=== PATIENT | female | born 1955 | race Caucasian/White ===

== ENCOUNTER 2018-02-03 14:33 | Observation (INO) ==
[2018-02-03] MEDS ORDERED: Isovue-370 500 ML INFUS..BTL IV ONE (14:51)
--- NOTE | 2018-02-03 14:57 | Emergency Department Note ---
Disposition Clinical Impression: Neurological symptoms Disposition: Admitted As Inpatient Condition: Good Referrals: Angelica Rodgers MD [Primary Care Provider] - Forms: ED Satisfaction Letter Time of Disposition: 16:34 General Adult HPI - General Chief complaint: ED Neuro Symptoms/Deficit Stated complaint: "L side weakness since 9pm 02/02" Time Seen by Provider: 02/03/18 14:39 Source: patient, family Mode of arrival: ambulatory Limitations: no limitations Nursing Notes Reviewed: Yes Vital Signs Reviewed: Yes - History of Present Illness HPI Narrative: 62-year-old female patient with a prior history of CVA presenting to the em ergency department with CVA symptoms. She states last night around 9 PM she felt a heaviness in the left side of her body. She does have left-sided deficits from her previous stroke. She states that it felt worse than normal. She also had a funny feeling in her head. She had a friend come over and sit with her for a while. She states when she woke up this morning she was back to baseline. She denied any deficits this morning. However around 1 PM this afternoon she states that she started having an increase in heaviness in the left side of her body as well as a dizziness feeling. She reports the dizziness feeling is a feeling like she might occasional rotary component but not present at this time. She does not take any anticoagulants other than aspirin at this time. She was previously on Plavix. She denies any history of bleeding in her head or abdominal bleeding. She denies any nausea vomiting diarrhea. No recent fevers or chills. No blood in her bowels or urine. Patient is currently complaining of a decreased movement in the left upper and left lower extremity. She states this is worse than her previous deficit. She is also complaining of decreased sensation to the right face. Patient denies any recent history of trauma. No seizures. Denies any rashes abdominal pain nausea vomiting chest pain or shortness of breath. Patient does have a history of previous CVA as well as carotid endarterectomies. Pain Scale: 0 - Related Data Home Medications Medication Instructions Recorded Confirmed Albuterol Neb [Proventil Neb] 2.5 mg IH Q2-4H PRN 04/04/15 04/04/15 Albuterol Sulfate [Albuterol 2 puff IH Q2-4H PRN 04/04/15 04/04/15 Inhaler] Aspirin/Calcium Carbonate/Mag 325 mg PO DAILY 12/30/15 12/30/15 [Aspirin Buffered 325 mg Tab] Tiotropium [Spiriva] 18 mcg IH DAILY 04/04/15 04/04/15 diazePAM [Valium] 5 mg PO TID 04/04/15 04/04/15 Previous Rx's Medication Instructions Recorded Budesonide/Formoterol 160/4.5 1 puff IH DAILY #1 hfa.aer.ad 04/04/15 [Symbicort 160/4.5] Allergies Allergy/AdvReac Type Severity Reaction Status Date / Time meperidine [From Demerol] AdvReac Vomiting Verified 02/03/18 14:38 All systems ED: reviewed and negative except as stated. Review of Systems: As Per HPI Past Medical History - Past Medical History Attestation: Yes The following information was validated with the patient. 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 Absent: scleral icterus, nystagmus - ENT ENT exam: other (Decreased sensation to the right side of her face. Decreased nasolabial fold on the left.) - Neck Neck exam: Present: normal inspection, full ROM, trachea midline. Absent: tenderness - Chest Chest inspection: Present: normal inspection, symmetric chest wall rise. Absent: tenderness - Respiratory Respiratory exam: Present: normal lung sounds bilaterally. Absent: respiratory distress, accessory muscle use - Cardiovascular Cardiovascular exam: Present: regular rate, normal rhythm, normal heart sounds - Abdominal Exam Abdominal exam: Present: soft, Non-Tender. Absent: tenderness, distention, guarding, rebound, rigidity, organomegaly, Moreno's sign, Rovsing's sign, tenderness at McBurney's Point - Extremities Exam Extremities exam: Present: normal capillary refill, other (. Contractures to the left hand. Decreased motor to the left upper and left lower extremity. Normal motor and sensation to the right upper right lower. Normal sensation all 4 extremities.). Absent: tenderness, pedal edema - Neurological Exam Neurological exam: Present: alert, oriented X3, motor sensory deficit (Decreased sensation to the right face. Decreased motor to the left upper and left lower extremity. Poor finger to nose with the left arm. Poor [id number]-[id number] with the left leg.). Absent: CN II-XII intact - Psychiatric Psychiatric exam: Present: normal affect, normal mood - Skin Skin exam: Present: warm, dry, intact, normal color. Absent: rash, cyanosis Course Course Narrative: Female patient does have a history of previous stroke. Reporting new increased weakness to the left upper and left lower. Does have poor finger to nose of her left upper and has poor [id number] of the left lower extremity. We did call stroke alert on the patient. Patient is mentating appropriately and alert and oriented 3 at this time. We did discuss this patient with [facility]. We will admit to the hospital after Ativan and Keppra dosing. - Consultations Consultation #1: Dr Calvert was present on the stroke camera. His recommendation is for ativan and keprra and admission for an EEG. He is concerned that this may actually be a seizure. We will order this and speak with our neurologist. Time: 15:34 Vital Signs Temperature 98.2 F 02/03/18 14:35 Pulse Rate 108 02/03/18 14:35 Respiratory Rate 16 02/03/18 14:35 Blood Pressure 129/67 02/03/18 14:35 O2 Sat by Pulse Oximetry 96 02/03/18 14:35 Temperature 98.2 F 02/03/18 14:39 Pulse Rate 95 02/03/18 15:25 Respiratory Rate 16 02/03/18 15:25 Blood Pressure 127/100 02/03/18 15:25 O2 Sat by Pulse Oximetry 96 02/03/18 15:25 Oxygen Delivery Oxygen Delivery Room Air Medical Decision Making - Medical Records Medical records reviewed: Yes I reviewed the patient's medical records. - Lab Data Lab results reviewed: Yes I reviewed the patient's lab results. Result diagrams: 02/03/18 14:53 02/03/18 14:53 Lab Results 02/03/18 02/03/18 02/03/18 Range/Units 14:52 14:53 14:53 WBC 10.2 (4.3-11.1) K/mcL RBC 3.92 (3.82-4.97) M/mcL Hgb 11.6 (11.5-15.4) g/dL Hct 35.1 L (35.3-44.9) % MCV 89.5 (83.0-100.0) fL MCH 29.6 (28.0-33.3) pg MCHC 33.0 (31.6-35.5) g/dL RDW 13.5 (11.5-14.5) % Plt Count 227 (140-400) K/mcL MPV 8.9 L (9.4-12.4) fL PT 12.4 H (9.4-12.1) Seconds INR 1.1 APTT 34.2 (26.0-36.0) Seconds Sodium (136-145) mEq/L Potassium (3.5-5.1) mEq/L Chloride (98-107) mEq/L Carbon Dioxide (23-29) mEq/L BUN (8-23) mg/dL Creatinine (0.60-1.20) mg/dL Est GFR ( Amer) (> 60) Est GFR (Non-Af Amer) (> 60) BUN/Creatinine Ratio (6-26) Glucose (70-105) mg/dL POC Glucose 101 H (70-99) mg/dL Calculated Osmolality (280-300) Calcium (8.6-10.3) mg/dL Troponin I (< 0.04) ng/mL 02/03/18 Range/Units 14:53 WBC (4.3-11.1) K/mcL RBC (3.82-4.97) M/mcL Hgb (11.5-15.4) g/dL Hct (35.3-44.9) % MCV (83.0-100.0) fL MCH (28.0-33.3) pg MCHC (31.6-35.5) g/dL RDW (11.5-14.5) % Plt Count (140-400) K/mcL MPV (9.4-12.4) fL PT (9.4-12.1) Seconds INR APTT (26.0-36.0) Seconds Sodium 139 (136-145) mEq/L Potassium 3.4 L (3.5-5.1) mEq/L Chloride 102 (98-107) mEq/L Carbon Dioxide 28 (23-29) mEq/L BUN 14 (8-23) mg/dL Creatinine 0.44 L (0.60-1.20) mg/dL Est GFR ( Amer) > 60 (> 60) Est GFR (Non-Af Amer) > 60 (> 60) BUN/Creatinine Ratio 32 H (6-26) Glucose 106 H (70-105) mg/dL POC Glucose (70-99) mg/dL Calculated Osmolality 289 (280-300) Calcium 9.5 (8.6-10.3) mg/dL Troponin I < 0.03 (< 0.04) ng/mL - Radiology Data Radiology results reviewed: Yes I reviewed the patient's radiology results. Head CTA 02/03/18 14:51 IMPRESSION: Distal cervical segment, and petrous segments of the bilateral internal carotid arteries are occluded. Left internal carotid artery occlusion is new since 08/25/2011. The right internal carotid artery disease has progressed since 08/25/2011. These are age indeterminate by this examination. Reconstitution of the internal carotid arteries at the cavernous segments. Diminutive P2 segment of the right posterior cerebral artery, with nonvisualization of the P3 and P4 segment of the right posterior cerebral artery. Correlation with change in patient's symptoms is recommended. Otherwise, no high-grade stenosis or focal occlusion involving the intracranial vasculature. No evidence of aneurysm. Please see separate CT head report for evaluation of brain parenchyma. D/ / 02/03/2018 15:57:29 Roman Oliver MD / [facility] Interpreting Provider: Roman Oliver MD Head CT 02/03/18 14:54 IMPRESSION: 1. No acute intracranial abnormality. These findings were discussed with Marine Sargent at 3:12 p.m. 02/03/2018. 2. Diffuse cerebral atrophy with chronic small vessel ischemic disease. 3. Right parietal lobe encephalomalacia likely from prior infarct. D/ / Ivan Crowe MD / Ivan Crowe MD Interpreting Provider: Ivan Crowe MD - EKG Data EKG #1 EKG attestation: Yes I reviewed and interpreted this EKG. EKG results narrative: Sinus tachycardia at a rate of 100. VT intervals 143. QRS duration is 99. QT is 370. QTC is 478. No signs of acute ischemia. No signs of WPW or Brugada. Slow R-wave progression. No significant change from previous EKG dated 1953. NIH Stroke Scale - Level of Consciousness LOC: Alert - LOC Questions LOC Questions: Answers both correctly - LOC Commands LOC Commands: Performs both correctly - Best Gaze Best Gaze: Normal - Visual Visual: No visual loss - Facial Palsy Facial Palsy: Minor asymmetry on smiling, flattened nasolabial fold - Motor Arms Motor Arm-Left: Drift, does NOT hit bed Motor Arm-Right: No drift for 10 seconds - Motor Legs Motor Leg-Left: Drift, does NOT hit bed Motor Leg-Right: No drift for 5 seconds - Limb Ataxia Limb Ataxia: Present in ONE limb - Sensory Sensory: Mild to moderate loss, "not as sharp" - Best Language Best Language: No aphasia - Dysarthria Dysarthria: Mild, slurs some words - Extinction and Inattention Extinction and Inattention: Normal - NIHSS Total Score NIHSS Total Score: 6
[2018-02-03 15:03] LABS: Hematocrit 35.1 % (35.3-44.9); Hemoglobin 11.6 g/dL (11.5-15.4); Mean Corpuscular Hemoglobin 29.6 pg (28.0-33.3); Mean Corpuscular Volume 89.5 fL (83.0-100.0); Mean Platelet Volume 8.9 fL (9.4-12.4); Platelet Count 227 K/mcL (140-400); Red Blood Count 3.92 M/mcL (3.82-4.97); Red Cell Distribution Width 13.5 % (11.5-14.5)
[2018-02-03 15:11] LABS: INR 1.1; Prothrombin Time 12.4 Seconds (9.4-12.1)
[2018-02-03 15:14] LABS: Activated Partial Thrombo Time 34.2 Seconds (26.0-36.0)
[2018-02-03 15:22] LABS: Troponin I < 0.03 ng/mL (< 0.04)
[2018-02-03] MEDS ORDERED: *HR* LORazepam 2 MG/ML VIAL IVP ONE (15:33)
[2018-02-03] MEDS ORDERED: levETIRAcetam 1,000 MG in 0.9 % Sodium Chloride 100 ML IVPB ONE (15:34)
[2018-02-03 15:46] LABS: BUN/Creatinine Ratio 32 (6-26); Blood Urea Nitrogen 14 mg/dL (8-23); Calcium 9.5 mg/dL (8.6-10.3); Carbon Dioxide 28 mEq/L (23-29); Chloride 102 mEq/L (98-107); Glucose 106 mg/dL (70-105); Osmolality,Calculated 289 (280-300); Potassium 3.4 mEq/L (3.5-5.1); Sodium 139 mEq/L (136-145); eGFR For Non-African Americans > 60 (> 60)
--- NOTE | 2018-02-03 16:01 | Emergency Department Note ---
Disposition Clinical Impression: Neurological symptoms Disposition: Admitted As Inpatient Referrals: Angelica Rodgers MD [Primary Care Provider] - Forms: ED Satisfaction Letter General Adult HPI - General Chief complaint: ED Neuro Symptoms/Deficit Stated complaint: "L side weakness since 9pm 02/02" Time Seen by Provider: 02/03/18 14:39 Source: patient, family Mode of arrival: ambulatory Limitations: no limitations - History of Present Illness Pain Scale: 0 - Related Data Home Medications Medication Instructions Recorded Confirmed Albuterol Neb [Proventil Neb] 2.5 mg IH Q2-4H PRN 04/04/15 04/04/15 Albuterol Sulfate [Albuterol 2 puff IH Q2-4H PRN 04/04/15 04/04/15 Inhaler] Aspirin/Calcium Carbonate/Mag 325 mg PO DAILY 04/04/15 04/04/15 [Aspirin Buffered 325 mg Tab] Benzonatate [Tessalon] 200 mg PO TID 04/04/15 04/04/15 Budesonide/Formoterol 80/4.5 2 puff IH BID 04/04/15 04/04/15 [Symbicort 80/4.5] Nitroglycerin 0.3 mg SL Q5MIN PRN 04/04/15 04/04/15 Tiotropium [Spiriva] 18 mcg IH DAILY 04/04/15 04/04/15 diazePAM [Valium] 5 mg PO TID 04/04/15 04/04/15 Previous Rx's Medication Instructions Recorded Albuterol Sulfate [Proair 90 mcg IH 2-4XD PRN #1 aer.[email or web address] 04/04/15 Respiclick] Azithromycin [Azithromycin 6-Tab 250 mg PO DAILY #6 tab 04/04/15 Pack] Budesonide/Formoterol 160/4.5 1 puff IH DAILY #1 hfa.aer.ad 04/04/15 [Symbicort 160/4.5] predniSONE [PredniSONE] 20 mg PO TAPER 9 Days tablet 04/04/15 Allergies Allergy/AdvReac Type Severity Reaction Status Date / Time meperidine [From Demerol] AdvReac Vomiting Verified 02/03/18 14:38 Past Medical History - Past Medical History Medical history: Reports: COPD, other Psychiatric history: Reports: anxiety, depression 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 Ch ([facility]) and he has acceptd yanet ot his service as consult. Time: 15:52 Consultation #2: dr. guan has called with result from [facility] after reading the CTA head/neck and state there areappears to be worsening of the bialteral ICA althouth this may be old and her symptoms do not seem severe enough for complete occlsuion especially if her symptoms hae resolved. [facility] Time: 15:53 Vital Signs Temperature 98.2 F 02/03/18 14:35 Pulse Rate 108 02/03/18 14:35 Respiratory Rate 16 02/03/18 14:35 Blood Pressure 129/67 02/03/18 14:35 O2 Sat by Pulse Oximetry 96 02/03/18 14:35 Temperature 98.2 F 02/03/18 14:39 Pulse Rate 95 02/03/18 15:25 Respiratory Rate 16 02/03/18 15:25 Blood Pressure 127/100 02/03/18 15:25 O2 Sat by Pulse Oximetry 96 02/03/18 15:25 Oxygen Delivery Oxygen Delivery Room Air Medical Decision Making - Lab Data Result diagrams: 02/03/18 14:53 02/03/18 14:53 Lab Results 02/03/18 02/03/18 02/03/18 Range/Units 14:52 14:53 14:53 WBC 10.2 (4.3-11.1) K/mcL RBC 3.92 (3.82-4.97) M/mcL Hgb 11.6 (11.5-15.4) g/dL Hct 35.1 L (35.3-44.9) % MCV 89.5 (83.0-100.0) fL MCH 29.6 (28.0-33.3) pg MCHC 33.0 (31.6-35.5) g/dL RDW 13.5 (11.5-14.5) % Plt Count 227 (140-400) K/mcL MPV 8.9 L (9.4-12.4) fL PT 12.4 H (9.4-12.1) Seconds INR 1.1 APTT 34.2 (26.0-36.0) Seconds Sodium (136-145) mEq/L Potassium (3.5-5.1) mEq/L Chloride (98-107) mEq/L Carbon Dioxide (23-29) mEq/L BUN (8-23) mg/dL Creatinine (0.60-1.20) mg/dL Est GFR ( Amer) (> 60) Est GFR (Non-Af Amer) (> 60) BUN/Creatinine Ratio (6-26) Glucose (70-105) mg/dL POC Glucose 101 H (70-99) mg/dL Calculated Osmolality (280-300) Calcium (8.6-10.3) mg/dL Troponin I (< 0.04) ng/mL 02/03/18 Range/Units 14:53 WBC (4.3-11.1) K/mcL RBC (3.82-4.97) M/mcL Hgb (11.5-15.4) g/dL Hct (35.3-44.9) % MCV (83.0-100.0) fL MCH (28.0-33.3) pg MCHC (31.6-35.5) g/dL RDW (11.5-14.5) % Plt Count (140-400) K/mcL MPV (9.4-12.4) fL PT (9.4-12.1) Seconds INR APTT (26.0-36.0) Seconds Sodium 139 (136-145) mEq/L Potassium 3.4 L (3.5-5.1) mEq/L Chloride 102 (98-107) mEq/L Carbon Dioxide 28 (23-29) mEq/L BUN 14 (8-23) mg/dL Creatinine 0.44 L (0.60-1.20) mg/dL Est GFR ( Amer) > 60 (> 60) Est GFR (Non-Af Amer) > 60 (> 60) BUN/Creatinine Ratio 32 H (6-26) Glucose 106 H (70-105) mg/dL POC Glucose (70-99) mg/dL Calculated Osmolality 289 (280-300) Calcium 9.5 (8.6-10.3) mg/dL Troponin I < 0.03 (< 0.04) ng/mL Attestation Statement - Attestation Attestation: I examined this patient and my medical decision-making was reviewed with the Resident Physician. I agree with the documented findings, disposition and treatment plan as described except to the extent set forth below. 62 year old female state that she had been expereincing facial numbness and sensation defecits that strted last night at 2100 and then she went to bed and it resolved in the morning but around 1300 today the symptomat returned. Patient states that she had a history of strokes with known left sided defecits. WE will call STROKE [facility]
--- NOTE | 2018-02-03 16:03 | Neurology - Consult Note ---
<Evangelist Monroe - Last Filed: 02/03/18 18:14> Date of Encounter: 02/03/18 Time of Encounter: 16:03 Assessment and Plan (1) Neurological symptoms Current Visit: Yes Status: Acute patient presents with two episodes of LE weakness greater on the left that lasted 30 min and along with this she had a left sided headache with spots. she has residual left sided weakness from previous stroke. Otherwise her neurological exam was non-focal and non-lateralizing CT head was negative for acute changes showed right parietal lobe encephalomela rossy from previous CTA head showed Distal cervical segment, and petrous segments of the bilateral internal carotid arteries are occluded. patient symptoms are less likely to be stroke,tia as symptoms reoccurred and did not have any localizing features patient does have a history of migraines and complex migraines may present like this: currently she does not have a headache also she has hx of seizure (grand-mal). Seizure should also be ruled out plan: patient will be started on keppra, EEG ordered. continue aspirin, statin (2) Migraine Current Visit: Yes Status: Acute patients symptoms could have been a complex migraine currently she denies headache plan as above. Qualifiers: Migraine type: with aura Status migrainosus presence: without status migrainosus Intractability: not intractable Qualified Code(s): G43.109 - Migraine with aura, not intractable, without status migrainosus (3) Seizure disorder Current Visit: Yes Status: Chronic patient started on keppra for concern for seizure eeg tomorrow (4) Bilateral carotid artery occlusion Current Visit: Yes Status: Chronic History of Present Illness Chief complaint: left sided weakness HPI: Ms. Mejia is a 62 year old female presents with cc of left sided weakness. Last night at 9PM she was watching television when she had sudden onset of left sided heaviness in the LLE as well as some right sided weakness. 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 She reports her LLE weakness worsened during this episode. She also had a headache at this time that was located above the left eye and without radiation described as throbbing. She reported spots in her eye as well as nausea, photophobia and phonophobia. She denies loosing conciousness, tongue biting, loss of bowel and bladder function, numbness, tingling, double vision, changing in hearing. She called her friend that lived 2 houses down as soon as symptoms started afraid she was having a TIA. Patient's friend was present and stated she had a ortiz to the house and had to open the door herself as patient could not stand up. The episode lasted 30 minutes, after which all her symptoms resolved and patient was able to ambulate independently. Friend reported patient did have worsening dysarthria. This morning patient woke up and had her breaskfast. Her symptoms returned again at 12PM and were very similar to the first. She called her PCP who advised her to come to the ED. Patient reports her symptoms had resolved by the time she had arrived. Patient also states she has history of grand-mal seizures and was on diazepam as treatment. She has not been on antiepileptic drugs.She used to be on diazepam 5mg TID and that has been titrated down to 5mg daily. Past Med Surg Social Fam HX - Past Medical History Medical history: COPD, other Additional medical history: pre-diabetic Psychiatric history: anxiety, depression - Past Surgical History Additional surgical history: cardiac stents - Social History Smoking Status: Current every day smoker Smokeless Tobacco Status: No Alcohol use: none Drug use: none Medications and Allergies Albuterol Neb [Proventil Neb] 2.5 mg IH Q2-4H PRN 04/04/15 [History] Albuterol Sulfate [Albuterol Inhaler] 2 puff IH Q2-4H PRN 04/04/15 [History] Aspirin/Calcium Carbonate/Mag [Aspirin Buffered 325 mg Tab] 325 mg PO DAILY 04/04/15 [History] Budesonide/Formoterol 160/4.5 [Symbicort 160/4.5] 1 puff IH DAILY #1 hfa.aer.ad 04/04/15 [Rx] Tiotropium [Spiriva] 1 puff IH DAILY 04/04/15 [History] diazePAM [Valium] 5 mg PO TID 04/04/15 [History] Atorvastatin [Lipitor] 40 mg PO HS 02/03/18 [History] Benzonatate [Tessalon] 200 mg PO TID PRN 02/03/18 [History] Fluticasone/Salmeterol [Airduo Respiclick 232-14 Mcg] 1 puff IH BID 02/03/18 [History] Mirtazapine [Remeron] 15 mg PO HS 02/03/18 [History] Nitroglycerin [Nitrostat] 0.4 mg SL Q5M PRN 02/03/18 [History] Allergy/AdvReac Type Severity Reaction Status Date / Time meperidine [From Demerol] AdvReac Vomiting Verified 02/03/18 14:38 All Systems: The remainder of the systems were reviewed and are negative - Constitutional Constitutional ROS IM: no chills, no fatigue - Nose, Mouth, Throat Nose, mouth and throat: other (denied vertigo, rinorrhea, dry mouth, dysphagia) - Cardiovascular Cardiovascular ROS IM: other (denies cp/palpitations) - Respiratory Respiratory IM: other (denined sob, cough) - Genitourinary Genitourinary ROS: other (denied abd pain/ diarrhea) - Musculoskeletal Musculoskeletal ROS IM: other (reports LLE weakness, ), no myalgias - Integumentary Integumentary IM: no erythema, no rash - Neurological Neurological ROS: as per HPI - Psychiatric Psychiatric general PM: no anxiety, no depression - Endocrine Endocrine IM: no cold intolerance, no fatigue Physical Examination - Vital Signs Vital Signs: Initial Vital Signs Temp Pulse Resp BP Pulse Ox 98.2 F 108 16 129/67 96 02/03/18 14:35 02/03/18 14:35 02/03/18 14:35 02/03/18 14:35 02/03/18 14:35 - Constitutional General appearance: comfortable - Neurologic Sensorimotor examination: pronator drift (left) Motor examination - right side: 3/5: deltoids, triceps, wrist flexion, wrist ex tension, assistant food service director, hip flexors, tibialis Anterior, toe extension (EHL), plantarflexion, 4/5: biceps, quadriceps Motor examination - left side: 4/5: deltoids, biceps, triceps, wrist flexion, wrist extension, hip flexors, assistant food service director, quadriceps, tibialis Anterior, toe extension (EHL), plantarflexion Detailed sensory examination: intact, light touch Reflex and gait examination: other (on the right relfexes ar 2/4 throughout. On the left biceps, patella, achilles, and bracioradialis are 3/4 while triceps are 2/4) Mental Status Examination: awake, alert, oriented to person, oriented to place, oriented to time, follows commands appropriately, answers questions appropriately, no agnosia, no aphasia, no aproxia Cranial nerve examination: PERRL, EOMI, visual duke intact, sensory to face intact, mastication intact, no facial asymmetry is present, no dysarthria, hearing is intact symmetrically, soft palate elevates bilaterally upon phonation, flexes SCM and trapezius muscles symmetrically with full power, tongue protrudes midline, no atrophy or facial fasiculations present Cerebellar examination: no dysmetria, performs finger to nose and heel to calderon symmetrically without ataxia, no truncal ataxia, no difficulty with rapid alternating movements Results - Laboratory Findings CBC and BMP: 02/03/18 14:53 02/03/18 14:53 Abnormal lab findings: Abnormal lab results Hct 35.1 % (35.3-44.9) L 02/03/18 14:53 MPV 8.9 fL (9.4-12.4) L 02/03/18 14:53 PT 12.4 Seconds (9.4-12.1) H 02/03/18 14:53 Potassium 3.4 mEq/L (3.5-5.1) L 02/03/18 14:53 Creatinine 0.44 mg/dL (0.60-1.20) L 02/03/18 14:53 BUN/Creatinine Ratio 32 (6-26) H 02/03/18 14:53 Glucose 106 mg/dL (70-105) H 02/03/18 14:53 POC Glucose 101 mg/dL (70-99) H 02/03/18 14:52 Consult Discharge Plan - Plan Instructions: Transient Ischemic Attack (GEN) Additional Instructions: Please follow up with your PCP Continue your outpatient Physical therapy Referrals: Angelica Rodgers MD [Primary Care Provider] - <Josh Ch - Last Filed: 02/04/18 15:24> Date of Encounter: 02/04/18 Time of Encounter: 15:15 Assessment and Plan (1) Neurological symptoms Current Visit: Yes Status: Acute It is possible that this patient may have experienced migraine phenomena, TIA, or perhaps seizure activity. Apparently she also has a history of anxiety is possible it could have been an anxiety attack as well. She has a known history of bilaterally occluded internal carotid arteries. My recommendation is to discontinue the Keppra and start her on Depakote ER 250 mg daily. This would help in the event that we are dealing with migraine headaches, and I might consider titrating up to antiepileptic dosages if she continues to experience these spells. Finally I would recommend discontinuing aspirin and replacing it with Plavix 75 mg daily. Management of her stroke risk factors is paramount. Otherwise I do not feel any other testing is necessary. Her EEG was normal. He may discharge her at your discretion. I would like to follow up with her in my office and another week or 2 for further assessment and possible titration of the Depakote ER. History of Present Illness HPI: The chart was reviewed, the patient was seen and examined independently. The case was discussed with Dr. Monroe. I agree with his assessment as stated above. Patient has not had any further episodes since admission. She apparently had a right cerebral hemispheric infarct back in 2011. She states that she did not however go to the hospital right away. These old infarct involving the right posterior temporal posterior frontal lobe and right parietal lobe region. At the time apparently she had right internal carotid artery stenosis. Ultimately she had a right carotid endarterectomy. However over time she has reoccluded b [facility] internal carotid arteries at the region of the petrous ridge. I did repeat her EEG today which was normal. I also personally reviewed her MRI scan of the brain which does reveal the above-mentioned abnormalities. There was no evidence of acute infarction however. All Systems: The remainder of the systems were reviewed and are negative Review of Systems: The balance of the systems review is negative. Physical Examination - Vital Signs Vital Signs: Initial Vital Signs Temp Pulse Resp BP Pulse Ox 98.2 F 108 16 129/67 96 02/03/18 14:35 02/03/18 14:35 02/03/18 14:35 02/03/18 14:35 02/03/18 14:35 - Neurologic Sensorimotor examination: pronator drift Motor examination - right side: 5/5: deltoids, biceps, triceps, assistant food service director, hip flexors, tibialis Anterior, quadriceps, toe extension (EHL), plantarflexion Motor examination - left side: 3/5: hip flexors, 4/5: deltoids, biceps, triceps, assistant food service director, quadriceps, tibialis Anterior, toe extension (EHL), plantarflexion Cranial nerve examination: no dysarthria (Speech is dysarthric.) Results - Laboratory Findings CBC and BMP: 02/04/18 09:03 02/04/18 05:04 Abnormal lab findings: Abnormal lab results RBC 3.18 M/mcL (3.82-4.97) L 02/04/18 05:04 Hgb 10.5 g/dL (11.5-15.4) L 02/04/18 09:03 Hct 32.2 % (35.3-44.9) L 02/04/18 09:03 MPV 9.3 fL (9.4-12.4) L 02/04/18 05:04 PT 12.4 Seconds (9.4-12.1) H 02/03/18 14:53 Potassium 3.2 mEq/L (3.5-5.1) L 02/04/18 05:04 Chloride 110 mEq/L (98-107) H 02/04/18 05:04 Carbon Dioxide 21 mEq/L (23-29) L 02/04/18 05:04 Creatinine 0.34 mg/dL (0.60-1.20) L 02/04/18 05:04 BUN/Creatinine Ratio 29 (6-26) H 02/04/18 05:04 POC Glucose 101 mg/dL (70-99) H 02/03/18 14:52 Calcium 8.3 mg/dL (8.6-10.3) L 02/04/18 05:04
--- NOTE | 2018-02-03 17:28 | Internal Med History&Physical ---
Date of Encounter: 02/03/18 Time of Encounter: 17:15 Internal Medicine - H&P: HPI Chief complaint: Seeing black spots in vision duke, weakness in lower extremities Admitted From: Emergency Dept Plans for Post Hospital Care: Home History of present illness: Ms. Mejia is a 62 year old female patient with a history of prior CVA with residual left-sided weakness who presented to the ER with complaints of black spots in her vision duke, right facial numbness and bilateral lower extremity weakness. She initially reported the symptoms last evening at 9 PM. Her sister checked in on her and while she was visiting, her symptoms seemed to improve. Then she again developed the symptoms at 1 PM this afternoon and called her primary care provider's office who advised her to come to the ER. She does have a history of seizures and reports that she takes diazepam 3 times a day for this. She last had a seizure one year back. Presently she complains that her legs still feel weak but she is able to ambulate. She denies any speech abnormality at this time but her sister noticed some speech abnormalities last night when she was on the phone with her. She denies any black spots in her visual duke at this time. Denies any chest pain or palpitations. No abdominal pain reported. She does report that she was previously told her neck vessels are occluded and there was no surgical intervention recommended for it. Past Med Surg Social Fam HX - Past Medical History Attestation: Yes The following information was validated with the patient. Source: patient, old records reviewed Medical history: COPD, other Additional medical history: pre-diabetic Psychiatric history: anxiety, depression - Past Surgical History Additional surgical history: cardiac stents - Social History Smoking Status: Current every day smoker Smokeless Tobacco Status: No Alcohol use: none Drug use: none - Additional Family History Additional family history: History of CVA in her family Internal Medicine - H&P: Meds Albuterol Neb [Proventil Neb] 2.5 mg IH Q2-4H PRN 04/04/15 [History] Albuterol Sulfate [Albuterol Inhaler] 2 puff IH Q2-4H PRN 04/04/15 [History] Aspirin/Calcium Carbonate/Mag [Aspirin Buffered 325 mg Tab] 325 mg PO DAILY 04/04/15 [History] Budesonide/Formoterol 160/4.5 [Symbicort 160/4.5] 1 puff IH DAILY #1 hfa.aer.ad 04/04/15 [Rx] Tiotropium [Spiriva] 1 puff IH DAILY 04/04/15 [History] diazePAM [Valium] 5 mg PO TID 04/04/15 [History] Atorvastatin [Lipitor] 40 mg PO HS 02/03/18 [History] Benzonatate [Tessalon] 200 mg PO TID PRN 02/03/18 [History] Fluticasone/Salmeterol [Airduo Respiclick 232-14 Mcg] 1 puff IH BID 02/03/18 [History] Mirtazapine [Remeron] 15 mg PO HS 02/03/18 [History] Nitroglycerin [Nitrostat] 0.4 mg SL Q5M PRN 02/03/18 [History] Allergy/AdvReac Type Severity Reaction Status Date / Time meperidine [From Demerol] AdvReac Vomiting Verified 02/03/18 14:38 All Systems PM: A 10-system review of systems was performed and is negative for pertinent findings except as documented above in the HPI. - Constitutional Constitutional: no chills, no fever(s), no night sweats - EENT Eyes: no change in vision, no discharge, no pain, no photophobia Ears: no ear discharge, no ear pain, no tinnitus Nose, mouth and throat: no dysphagia, no nasal discharge, no neck pain, no sore throat - Cardiovascular Cardiovascular ROS IM: no chest pain, no diaphoresis, no dyspnea, no lightheadedness, no palpitations, no syncope - Respiratory Respiratory: no cough, no dyspnea, no wheezing, no excessive phlegm production - Gastrointestinal Gastrointestinal: no abdominal pain, no diarrhea, no hematemesis, no hematochezia, no melena, no nausea, no vomiting - Musculoskeletal Musculoskeletal ROS IM: no numbness, no tingling Additional comments: 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 - Neck Neck exam general surgery: Present: supple, trachea midline. Absent: lymphadenopathy - Respiratory Respiratory exam: Present: CTAB. Absent: accessory muscle use, rales, rhonchi, wheezes - Cardiovascular Cardiovascular exam: Present: RRR, +S1, +S2. Absent: diastolic murmur, gallop, rubs, systolic murmur - GI/Abdominal GI/Abdominal exam: Present: normal bowel sounds, soft, no peritoneal signs. Absent: distended, tenderness - Extremities Exam Extremities exam: Present: warm, radial pulses palpable and symmetrical. Absent: calf tenderness, cyanotic, pedal edema - Neurological Exam Neurological exam: Present: alert, CN II-XII intact. Absent: facial droop, speech deficit Additional comments: Left upper and lower extremity weakness which appears to be chronic. Strength is 4+ / 5 in these extremities. Strength 5 /5 on the right side. - Skin Skin exam: Present: dry, intact Internal Med - H&P Results - Labs CBC & Chem 7: 02/03/18 14:53 02/03/18 14:53 Labs: Short CBC 02/03/18 Range/Units 14:53 WBC 10.2 (4.3-11.1) K/mcL Hgb 11.6 (11.5-15.4) g/dL Hct 35.1 L (35.3-44.9) % Plt Count 227 (140-400) K/mcL BMP 02/03/18 14:53 Sodium 139 Potassium 3.4 L Chloride 102 Carbon Dioxide 28 BUN 14 Creatinine 0.44 L Glucose 106 H Calcium 9.5 Cardiac Enzymes 02/03/18 Range/Units 14:53 Troponin I < 0.03 (< 0.04) ng/mL - Impressions ITS Impressions Head CTA 02/03/18 14:51 IMPRESSION: Distal cervical segment, and petrous segments of the bilateral internal carotid arteries are occluded. Left internal carotid artery occlusion is new since 08/25/2011. The right internal carotid artery disease has progressed since 08/25/2011. These are age indeterminate by this examination. Reconstitution of the internal carotid arteries at the cavernous segments. Diminutive P2 segment of the right posterior cerebral artery, with nonvisualization of the P3 and P4 segment of the right posterior cerebral artery. Correlation with change in patient's symptoms is recommended. Otherwise, no high-grade stenosis or focal occlusion involving the intracranial vasculature. No evidence of aneurysm. Please see separate CT head report for evaluation of brain parenchyma. D/ / 02/03/2018 15:57:29 Roman Oliver MD / [place] Interpreting Provider: Roman Oliver MD Head CT 02/03/18 14:54 IMPRESSION: 1. No acute intracranial abnormality. These findings were discussed with Marine Sargent at 3:12 p.m. 02/03/2018. 2. Diffuse cerebral atrophy with chronic small vessel ischemic disease. 3. Right parietal lobe encephalomalacia likely from prior infarct. D/ / Ivan Crowe MD / Ivan Crowe MD Interpreting Provider: Ivan Crowe MD - Assessment and plan (1) TIA (transient ischemic attack) Current Visit: Yes Status: Suspected Assessment and plan: Patient with symptoms of black spots in her visual duke along with right-sided facial numbness and right lower extremity and left lower extremity weakness. Symptoms have now resolved. We will work her up for TIA per neurology recomm endations. CT angiogram completed. Does show bilateral internal carotid artery occlusion. Continue aspirin and statin. Monitor vital signs closely. (2) Seizure disorder Current Visit: Yes Status: Chronic Assessment and plan: Patient with history of seizure disorder. Reports that she only takes diazepam for this. Has been recommended by [facility] neurology to be started on Keppra. We will also order EEG. Neurology consulted. Seizure precautions. (3) Bilateral carotid artery occlusion Current Visit: Yes Status: Chronic Assessment and plan: Discussed with vascular surgery. Patient does appear to have chronic carotid artery occlusion. No surgical intervention recommended at this time. Continue aspirin and statin. Vascular surgery will see patient in consultation. (4) COPD (chronic obstructive pulmonary disease) Current Visit: Yes Status: Chronic Assessment and plan: Patient with reported history of COPD. Will continue home medications for this condition. Also place her on bronchodilator nebs. Qualifiers: COPD type: unspecified COPD Qualified Code(s): J44.9 - Chronic obstructive pulmonary disease, unspecified - Time Spent With Patient Total time spent is greater than 50% in coordination of care (as documented) at patient's floor/unit and/or counseling patient:
[2018-02-03] MEDS ORDERED: Acetaminophen 325 MG TABLET PO PRN (17:34)
[2018-02-03] MEDS ORDERED: Naloxone 0.4 MG/ML INJ IVP PRN (17:34)
[2018-02-03] MEDS ORDERED: Benzonatate 100 MG CAPSULE PO PRN (17:36)
[2018-02-03] MEDS ORDERED: Nitroglycerin 0.4 MG TAB.SUBL SL PRN (17:36)
[2018-02-03] MEDS ORDERED: FLUTICASONE IH SCH (21:00)
[2018-02-03] MEDS ORDERED: [UNRECOGNIZED DRUG - OTHER] IH SCH (21:00)
[2018-02-03] MEDS ORDERED: diazePAM 5 MG TABLET PO SCH (21:00)
[2018-02-03] MEDS ORDERED: SALMETEROL IH SCH (21:00)
[2018-02-03] MEDS ORDERED: Mirtazapine 15 MG TABLET PO SCH (21:00)
[2018-02-03] MEDS: *HR* Heparin 5,000 UNIT/ML VIAL SQ SCH (22:31)
[2018-02-03] MEDS ORDERED: 0.9 % Sodium Chloride 500 ML IVC ONE (22:39)
[2018-02-03] MEDS: Albuterol 2.5 MG/3 ML NEBULIZER IH PRN (22:39)
[2018-02-03] MEDS ORDERED: 0.9 % Sodium Chloride 500 ML ONE (22:45)
[2018-02-04] MEDS ORDERED: 0.9 % Sodium Chloride 500 ML IVC ONE ×2 (01:16→03:40)
[2018-02-04] MEDS ORDERED: 0.9 % Sodium Chloride 500 ML ONE (03:39)
[2018-02-04] MEDS: *HR* Heparin 5,000 UNIT/ML VIAL SQ SCH ×2 (05:25→17:01)
[2018-02-04] MEDS: levETIRAcetam 250 MG TABLET PO SCH ×2 (05:26→17:00)
[2018-02-04 05:49] LABS: Basophils % 0.8 %; Eosinophils # 0.3 K/mcL (0.0-0.6); Eosinophils % 5.1 %; Hematocrit 28.7 % (35.3-44.9); Lymphocytes # 2.5 K/mcL (0.6-4.6); Lymphocytes % 46.6 %; Mean Corpuscular HGB Conc 32.4 g/dL (31.6-35.5); Mean Corpuscular Hemoglobin 29.2 pg (28.0-33.3); Mean Corpuscular Volume 90.3 fL (83.0-100.0); Mean Platelet Volume 9.3 fL (9.4-12.4); Monocytes # 0.5 K/mcL (0.0-1.3); Monocytes % 8.7 %; Platelet Count 185 K/mcL (140-400); Red Blood Count 3.18 M/mcL (3.82-4.97); Red Cell Distribution Width 13.9 % (11.5-14.5); Segmented Neutrophils % 38.8 %
[2018-02-04 05:51] LABS: Hemoglobin 9.3 g/dL (11.5-15.4)
[2018-02-04 06:10] LABS: BUN/Creatinine Ratio 29 (6-26); Blood Urea Nitrogen 10 mg/dL (8-23); Calcium 8.3 mg/dL (8.6-10.3); Carbon Dioxide 21 mEq/L (23-29); Chloride 110 mEq/L (98-107); Cholesterol 139 mg/dL (< 200); Glucose 83 mg/dL (70-105); Osmolality,Calculated 286 (280-300); Potassium 3.2 mEq/L (3.5-5.1); Sodium 139 mEq/L (136-145); Triglycerides 53 mg/dL (< 150); eGFR For Non-African Americans > 60 (> 60)
[2018-02-04 08:55] LABS: Chol/HDL Ratio 2.9 (0-4.9); HDL Cholesterol 48 mg/dL (40-59); LDL Cholesterol,Calculated 80 mg/dL (0-99)
[2018-02-04] MEDS ORDERED: Budesonide/Formoterol 160/4.5 1 PUFF INH IH SCH ×2 (09:00→22:00)
[2018-02-04] MEDS ORDERED: ASPIRIN PO SCH (09:00)
[2018-02-04] MEDS ORDERED: Aspirin Enteric Coated 325 MG Tablet PO SCH (09:00)
[2018-02-04] MEDS ORDERED: MAG PO SCH (09:00)
[2018-02-04] MEDS ORDERED: CALCIUM CARBONATE PO SCH (09:00)
[2018-02-04] MEDS ORDERED: Tiotropium 18 MCG inhalation IH SCH ×2 (09:00)
[2018-02-04 10:07] LABS: Hematocrit 32.2 % (35.3-44.9); Hemoglobin 10.5 g/dL (11.5-15.4)
[2018-02-04 11:20] LABS: Thyroid Stimulating Hormone 0.719 mcIU/mL (0.340-5.600)
--- NOTE | 2018-02-04 14:16 | Vascular/Endovasc Consult Note ---
Date of Encounter: 02/04/18 Time of Encounter: 13:45 Assessment and Plan (1) Bilateral carotid artery occlusion Status: Chronic The pathophysiology and natural history of carotid artery stenosis was discussed the patient WAS are answered. The patient has a remote history of a right carotid endarterectomy. Recent imaging reveals bilateral carotid artery occlusions. She has no evidence of recent cerebrovascular accident. Surgery is contraindicated. Multiple medical management has recommended for the patient the patient should continue with a statin as well as take Plavix 75 mg daily. She will follow-up with vascular surgery is needed. (2) Neurological symptoms Status: Acute The patient exhibited left hemispheric neurologic changes prior to admission. Her symptoms have resolved and has not recurred. She also has a history of seizure disorder. She was seen by neurology a neurologist started on Keppra. Her imaging studies revealed no evidence of an acute she will vascular accident. (3) COPD (chronic obstructive pulmonary disease) Status: Chronic Qualifiers: COPD type: unspecified COPD Qualified Code(s): J44.9 - Chronic obstructive pulmonary disease, unspecified (4) Coronary artery disease Status: Chronic Qualifiers: Coronary Disease-Associated Artery/Lesion type: [place] artery [place] vs. transplanted heart: [place] heart Associated angina: without angina Qualified Code(s): I25.10 - Atherosclerotic heart disease of [place] coronary artery without angina pectoris (5) Mixed hyperlipidemia Status: Chronic She was counseled regarding atherosclerotic risk factor reduction. - History of Present Illness Consult date: 02/04/18 Requesting physician: Gregory Hope Consult reason: Carotid Occlusions Chief complaint: Procedure History of present illness: Ms. Mejia is a 62 year old female with history of a vascular accidents and carotid stenosis. The patient presented to the emergency room with complaints of left-sided weakness headaches and visual disturbances. Her symptoms last for approximately 30 minutes. He was seen in the emergency room and a CT was negative for any acute changes. She then underwent a CT angiogram which revealed bilateral carotid artery occlusion. She was admitted for further evaluation. She had no recurrent symptoms. The patient does report a history of seizure disorder, but states that she did not have more than one year. Due to her carotid disease vascular surgery was counseled for further evaluation. Of the her recent presentation she denies any symptoms which may be consistent with CVA, TIA or amaurosis fugax. At this time of consultation the patient is alert and comfortable without complaints. She she denies any chest pain or shortness of breath. Past Med Surg Social Fam HX - Past Medical History Medical history: COPD, other Additional medical history: pre-diabetic Psychiatric history: anxiety, depression - Past Surgical History Additional surgical history: cardiac stents - Social History Smoking Status: Current every day smoker Packs per day: 1 Smokeless Tobacco Status: No Alcohol use: none Drug use: none - Family History Mother Living Status: Age at : 84 Cause of : CHF Hx Family Cardiac Disorders: Yes Hx Family Respiratory Disorders: No Hx Family Cancer: No Hx Family Endocrine Disorder: Yes Hx Family Neurologic Disorders: Yes Hx Family Medical Disorders: Yes Father Living Status: Medications and Allergies RX: Albuterol Neb [Proventil Neb] 2.5 mg IH Q2-4H PRN 04/04/15 [History] RX: Albuterol Sulfate [Albuterol Inhaler] 2 puff IH Q2-4H PRN 04/04/15 [History] RX: diazePAM [Valium] 5 mg PO TID 04/04/15 [History] RX: Atorvastatin [Lipitor] 40 mg PO HS 02/03/18 [History] RX: Benzonatate [Tessalon] 200 mg PO TID PRN 02/03/18 [History] RX: Fluticasone/Salmeterol [Airduo Respiclick 232-14 Mcg] 1 puff IH BID 02/03/18 [History] RX: Mirtazapine [Remeron] 15 mg PO HS 02/03/18 [History] RX: Nitroglycerin [Nitrostat] 0.4 mg SL Q5M PRN 02/03/18 [History] Clopidogrel Bisulfate [Plavix] 75 mg PO Q24H #30 tablet 02/04/18 [Rx] Divalproex (24 HR) [Depakote ER (24 HR)] 250 mg PO HS #30 tab.er.24h 02/04/18 [Rx] Allergy/AdvReac Type Severity Reaction Status Date / Time meperidine [From Demerol] AdvReac Vomiting Verified 02/03/18 14:38 All Systems Review: The remainder of the systems were reviewed and are negative - Constitutional Constitutional: no chills, no fever(s) - Cardiovascular Cardiovascular: no chest pain at rest, no dyspnea at rest Exam Vital Signs, Last 4 Hours Temp Pulse Resp BP BP BP BP 02/04/18 11:46 90/63 101/76 108/78 02/04/18 11:45 98.2 F 70 18 102/56 Pulse Ox 02/04/18 11:46 02/04/18 11:45 97 General: Present: Conversant, No Apparent Distress HEENT: Present: Trachea midline, Pupils equal Neck: Absent: JVD, Lymphadenopathy, Left Carotid bruit, Right Carotid bruit Cardiac: Present: Reg Rate and Rhythm, Normal S1 and S2 Lungs: Present: Normal Breath Sounds, No Wheeze, Rales, Rhonchi Neuro: Present: Alert and responsive, No focal deficits noted, Motor nerves grossly intact, Sensory nerves grossly intact Abdomen: Present: Soft, Non-tender. Absent: Masses Vascular: Present: Normal capillary refill. Absent: Cyanosis, Edema Skin: Present: No rashes noted on visualized skin Consult Discharge Plan - Plan Instructions: Clopidogrel (By mouth), Divalproex (By mouth), Transient Ischemic Attack (GEN) Additional Instructions: Please follow up with your PCP Continue your outpatient Physical therapy Referrals: Angelica Rodgers MD [Primary Care Provider] - (in 1-2 weeks) Josh Ch DO [Partnered Physician] - (in 1-2 weeks) Prescriptions: Clopidogrel Bisulfate [Plavix] 75 mg PO Q24H #30 tablet Divalproex (24 HR) [Depakote ER (24 HR)] 250 mg PO HS #30 tab.er.24h
--- NOTE | 2018-02-04 14:44 | EEG/EMG/Oth Biometrics Report ---
EEG Procedure Report Date of procedure: 02/04/18 EEG Procedure: Routine EEG Procedure Note: This is a report of a 21 channel bipolar and referential montage EEG. The posterior dominant rhythm consisted of mixed low voltage alpha and beta frequencies. This rhythm however is poorly sustained. Hyperventilation is not performed during the recording. There is no sleep architecture identified during the study. Photic stimulation is performed and does not produce a driving response. The EKG rhythm strip reveals low voltage normal sinus rhythm at a rate of 74 bpm. Impressions: This is a normal routine EEG. There is no evidence of epileptiform activity identified during the study.The EKG rhythm strip is low voltage. Please correlate clinically.
--- NOTE | 2018-02-04 15:04 | Discharge Summary ---
<Brenda Day E - Last Filed: 02/04/18 16:22> Orders not resulted at time of discharge: Pending orders 02/04/18 08:57 Stool guiac [Occult Blood,Stool] [BF] Routine Date of Encounter: 02/04/18 Time of Encounter: 09:00 - Discharge Diagnosis (1) Bilateral carotid artery occlusion Priority: Secondary Status: Chronic (2) COPD (chronic obstructive pulmonary disease) Priority: Secondary Status: Chronic Qualifiers: COPD type: unspecified COPD Qualified Code(s): J44.9 - Chronic obstructive pulmonary disease, unspecified (3) Seizure disorder Priority: Secondary Status: Chronic (4) TIA (transient ischemic attack) Priority: Primary Status: Suspected Hospital course: Ms. Mejia is a 62 year old female who presented to the ER with right sided weakness and dizziness. She was admitted for possible TIAs. She was seen by Neurology with MRI which showed her prior CVA but no acute abnormalities. She was started on keppra for her history of seizure disorder. Patient has had her right sided weakness resolve and just remains with her focal left sided deficits from her prior CVA. PT evaluated and recommended her to continue her outpatient PT. Orthostatic blood pressures were negative for any abnormalities. Due to her slight drop in hemoglobin we recommend outpatient colonoscopy. - Time Spent with Patient Total time spent providing and/or coordinating discharge services: - Discharge Medications Prescriptions: Clopidogrel Bisulfate [Plavix] 75 mg PO Q24H #30 tablet Divalproex (24 HR) [Depakote ER (24 HR)] 250 mg PO HS #30 tab.er.24h Home Medications: RX: Albuterol Neb [Proventil Neb] 2.5 mg IH Q2-4H PRN 04/04/15 [History] RX: Albuterol Sulfate [Albuterol Inhaler] 2 puff IH Q2-4H PRN 04/04/15 [History] RX: diazePAM [Valium] 5 mg PO TID 04/04/15 [History] RX: Atorvastatin [Lipitor] 40 mg PO HS 02/03/18 [History] RX: Benzonatate [Tessalon] 200 mg PO TID PRN 02/03/18 [History] RX: Fluticasone/Salmeterol [Airduo Respiclick 232-14 Mcg] 1 puff IH BID 02/03/18 [History] RX: Mirtazapine [Remeron] 15 mg PO HS 02/03/18 [History] RX: Nitroglycerin [Nitrostat] 0.4 mg SL Q5M PRN 02/03/18 [History] Clopidogrel Bisulfate [Plavix] 75 mg PO Q24H #30 tablet 02/04/18 [Rx] Divalproex (24 HR) [Depakote ER (24 HR)] 250 mg PO HS #30 tab.er.24h 02/04/18 [Rx] Allergies/Adverse Reactions: Allergy/AdvReac Type Severity Reaction Status Date / Time meperidine [From Demerol] AdvReac Vomiting Verified 02/03/18 14:38 Date of admission: 02/03/18 17:30 Primary care physician: Angelica Rodgers MD Consults: 02/03/18 17:00 Consult to Vascular Surgery [CONS] Routine Consulting Provider: [facility] [place] Reason for Consult: B/l Carotid occlusion Time Notified: 17:00 Call Completed: Yes 02/03/18 17:35 Consult to [employer] [CONS] Routine Reason for SW Consult: Discharge planning 02/03/18 18:29 Consult to Nutrition [CONS] Routine Comment: Consulting Provider: NUTRITION Reason for Dietary Consult: MST Score Consult to [employer] [CONS] Routine Reason for SW Consult: HAS HOME O2 THROUGH [place] 02/04/18 10:15 Consult to Interpret Exam [CONS] Routine Consulting Provider: Josh Ch Consult to Interpret Exam: Interpret Sleep Study Discharging clinician: Gregory Hope Anticipated date of discharge: 02/04/18 - Constitutional Vitals: Temp Pulse Resp BP Pulse Ox 98.2 F 70 18 90/63 97 02/04/18 11:45 02/04/18 11:45 02/04/18 11:45 02/04/18 11:46 02/04/18 11:45 General appearance: Present: cooperative, A&O X 3, pleasant, answers questions appropriately Exam: General: AAox3, answers questions appropriately HEart: RRR, no murmurs, rubs, or gallops Pulm: CTAB, no wheezes, no rhonchi Extremities: no pedal edema, pulses equal in all 4 extremities Skin: warm, dry, intact Neuro: patient able to pincer grasp with both hands, less so with lef tbut she states this is her normal, some focal weakness to left side, none to right side. - Patient Status Disposition: Home, Self-Care Condition: Good Functional capacity at discharge: independent ambulation Overall status at discharge: patient is progressing back to baseline - Discharge Instructions Instructions: Transient Ischemic Attack (GEN) Follow Up With: Josh Ch DO [Partnered Physician] - (in 1-2 weeks) Angelica Rodgers MD [Primary Care Provider] - (in 1-2 weeks) Additional Instructions: Please follow up with your PCP Continue your outpatient Physical therapy - Diet and Activity Activity: increase activity as tolerated Diet: advance to your usual diet <Gregory Hope - Last Filed: 02/04/18 16:57> - NOTES TO OUTPATIENT PROVIDER Notes to Outpatient Provider: Patient was hospitalized here after presenting to the ER with complaints of bilateral lower extremity weakness. 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 She had an episode of the previous night also which resolved. Neurology and stroke team were consulted. They recommended doing a CT angiogram of the head and neck which did not show any acute stroke but showed bilateral carotid occlusion. This was known to the patient and vascular surgery was also consulted. They did not recommend any intervention. Neurology recommended monitoring and evaluating for seizures. Patient underwent MRI of the brain which did not show any acute stroke. EEG was also negative. Neurology recommends placing patient on Dilantin and Plavix and follow-up outpatient. Patient was evaluated by physical therapy and recommended no further needs. She will be discharged today. She also had anemia and would benefit from outpatient colonoscopy. Orders not resulted at time of discharge: Pending orders 02/04/18 08:57 Stool guiac [Occult Blood,Stool] [BF] Routine Date of Encounter: 02/04/18 Time of Encounter: 16:51 - Discharge Diagnosis (1) Neurological symptoms Status: Acute (2) Seizure disorder Status: Chronic (3) Bilateral carotid artery occlusion Status: Chronic (4) Migraine Status: Acute Qualifiers: Migraine type: with aura Status migrainosus presence: without status migrainosus Intractability: not intractable Qualified Code(s): G43.109 - Migraine with aura, not intractable, without status migrainosus Hospital course: Ms. Mejia is a 62 year old female - Time Spent with Patient Total time spent providing and/or coordinating discharge services: Less than 30 minutes (25 min) Date of admission: 02/03/18 17:30 Primary care physician: Angelica Rodgers MD Consults: 02/03/18 17:00 Consult to Vascular Surgery [CONS] Routine Consulting Provider: V[facility] Surgery [place] Reason for Consult: B/l Carotid occlusion Time Notified: 17:00 Call Completed: Yes 02/03/18 17:35 Consult to [employer] [CONS] Routine Reason for SW Consult: Discharge planning 02/03/18 18:29 Consult to Nutrition [CONS] Routine Comment: Consulting Provider: NUTRITION Reason for Dietary Consult: MST Score Consult to [employer] [CONS] Routine Reason for SW Consult: HAS HOME O2 THROUGH SHA[place] 02/04/18 10:15 Consult to Interpret Exam [CONS] Routine Consulting Provider: Josh Ch Consult to Interpret Exam: Interpret Sleep Study - Constitutional Vitals: Temp Pulse Resp BP Pulse Ox 98.9 F 75 18 99/69 99 02/04/18 15:36 02/04/18 15:36 02/04/18 15:36 02/04/18 15:36 02/04/18 15:36 General appearance: Present: cooperative, A&O X 3, pleasant - Respiratory Respiratory exam: Present: CTAB. Absent: accessory muscle use, rales, rhonchi, wheezes - Extremities Exam Extremities exam: Present: warm, radial pulses palpable and symmetrical. Absent: calf tenderness, cyanotic, pedal edema - Neurological Exam Additional comments: Decreased strength in left upper and lower extremity-4 +/ 5. Normal in right upper and lower extremities. - Attending Attestation I saw evaluated and examined this patient and my medical decision-making was reviewed with the Resident Physician, Brenda Day. I agree with the documented findings, disposition and treatment plan as described except to any changes set forth below. We independently had [id number] contact with the patient.
[2018-02-04] MEDS: Albuterol 2.5 MG/3 ML NEBULIZER IH PRN (15:25)
[2018-02-04 15:37] VITALS: BP 99/69
--- NOTE | 2018-02-04 21:19 | Electrocardiograph Report ---
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
== END 2018-02-04 17:44 | disposition home or self-care (01) ==
LOC: 2NENU 14:33 → EMEROOARM 14:33 → SUATTDRO 17:30 → 2NENU 18:00
PROVIDERS: ADMIT Internal Medicine; ATTEND Internal Medicine

== ENCOUNTER 2020-09-12 08:49 | Observation (INO) ==
[2020-09-12] MEDS ORDERED: methylPREDNISolone 125 MG/2 ML VIAL IVP ONE (09:05)
[2020-09-12] MEDS ORDERED: Ipratropium/Albuterol Neb 3 ML IH ONE (09:05)
[2020-09-12 09:42] LABS: Basophils % 0.5 %; Eosinophils # 0.2 K/mcL (0.0-0.6); Eosinophils % 2.7 %; Hematocrit 37.2 % (35.3-44.9); Hemoglobin 12.2 g/dL (11.5-15.4); Immature Granulocytes % 0.1 % (0-4); Lymphocytes # 1.2 K/mcL (0.6-4.6); Lymphocytes % 15.9 %; Mean Corpuscular HGB Conc 32.8 g/dL (31.6-35.5); Mean Corpuscular Hemoglobin 30.1 pg (28.0-33.3); Mean Corpuscular Volume 91.9 fL (83.0-100.0); Mean Platelet Volume 8.6 fL (9.4-12.4); Monocytes # 0.5 K/mcL (0.0-1.3); Monocytes % 6.7 %; Neutrophils # 5.4 K/mcL (1.6-8.9); Platelet Count 331 K/mcL (140-400); Red Blood Count 4.05 M/mcL (3.82-4.97); Red Cell Distribution Width 13.8 % (11.5-14.5); Segmented Neutrophils % 74.1 %; White Blood Count 7.3 K/mcL (4.3-11.1)
[2020-09-12 10:04] LABS: BUN/Creatinine Ratio 17 (6-26); Blood Urea Nitrogen 8 mg/dL (8-23); Calcium 9.5 mg/dL (8.6-10.3); Carbon Dioxide 29 mEq/L (23-29); Chloride 98 mEq/L (98-107); Glucose 108 mg/dL (70-105); Osmolality,Calculated 279 (280-300); Potassium 3.9 mEq/L (3.5-5.1); Sodium 135 mEq/L (136-145); Troponin I < 0.03 ng/mL (< 0.04); eGFR For African Americans > 60 (> 60); eGFR For Non-African Americans > 60 (> 60)
[2020-09-12] MEDS ORDERED: Isovue-370 500 ML BOTTLE IVP ONE (12:18)
[2020-09-12] MEDS ORDERED: Azithromycin 500 MG in D5% in Water 250 ML IVPB ONE (14:18)
[2020-09-12] MEDS ORDERED: Mag Hydrox/Al Hydrox/Simeth 30 ML UDC PO PRN (14:42)
[2020-09-12] MEDS ORDERED: Melatonin 3 MG TABLET PO PRN (14:42)
[2020-09-12] MEDS ORDERED: Naloxone 0.4 MG/ML INJ IVP PRN (14:42)
[2020-09-12] MEDS ORDERED: Ondansetron ODT 4 MG TAB.RAPDIS SL PRN (14:42)
[2020-09-12] MEDS ORDERED: MOM Conc 10 ML UD.LIQ PO PRN (14:42)
[2020-09-12] MEDS ORDERED: Perflutren Lipid Microsphere 1.3 ML in 0.9 % Sodium Chloride 8.7 ML IVP PRN (14:46)
[2020-09-12] MEDS ORDERED: Gabapentin 100 MG CAPSULE PO PRN (14:51)
[2020-09-12] MEDS: Ipratropium/Albuterol Neb 3 ML IH SCH ×3 (15:47→23:39)
[2020-09-12] MEDS: Nicotine 14 MG PATCH.TD24 TD SCH (15:51)
[2020-09-12] MEDS ORDERED: Ipratropium/Albuterol Neb 3 ML IH SCH (17:00)
[2020-09-12] MEDS: Benzonatate 100 MG CAPSULE PO PRN (17:23)
[2020-09-12 17:36] LABS: Adenovirus Not Detected (Not Detect); Bordetella Pertussis Not Detected (Not Detect); Chlamydophila pneumoniae Not Detected (Not Detect); Coronavirus 229E Not Detected (Not Detect); Coronavirus HKU1 Not Detected (Not Detect); Coronavirus NL63 Not Detected (Not Detect); Coronavirus OC43 Not Detected (Not Detect); Human Metapneumovirus Not Detected (Not Detect); Human Rhinovirus/Enterovirus Not Detected (Not Detect); Influenza A Subtype 2009 H1 Not Detected (Not Detect); Influenza B Not Detected (Not Detect); Mycoplasma pneumoniae Not Detected (Not Detect); Parainfluenza Virus 1 Not Detected (Not Detect); Parainfluenza Virus 2 Not Detected (Not Detect); Parainfluenza Virus 3 Not Detected (Not Detect); Parainfluenza Virus 4 Not Detected (Not Detect); Respiratory Syncytial Virus Not Detected (Not Detect); SARS-CoV-2 Not Detected (Not Detect)
[2020-09-12] MEDS: Mirtazapine 15 MG TABLET PO SCH (20:22)
[2020-09-13] MEDS: Benzonatate 100 MG CAPSULE PO PRN ×2 (00:56→21:59)
[2020-09-13] MEDS: Ipratropium/Albuterol Neb 3 ML IH SCH ×6 (04:32→23:40)
[2020-09-13 04:33] LABS: Hematocrit 33.4 % (35.3-44.9); Hemoglobin 10.8 g/dL (11.5-15.4); Mean Corpuscular HGB Conc 32.3 g/dL (31.6-35.5); Mean Corpuscular Hemoglobin 29.4 pg (28.0-33.3); Mean Platelet Volume 8.6 fL (9.4-12.4); Platelet Count 297 K/mcL (140-400); Red Blood Count 3.67 M/mcL (3.82-4.97); Red Cell Distribution Width 13.9 % (11.5-14.5); White Blood Count 9.5 K/mcL (4.3-11.1)
[2020-09-13 04:51] LABS: Alanine Aminotransferase 20 Units/L (7-52); Albumin 4.1 g/dL (3.5-5.7); Albumin/Globulin Ratio 1.9 (1.1-2.2); Alkaline Phosphatase 60 Units/L (34-104); Aspartate Amino Transferase 22 Units/L (13-39); BUN/Creatinine Ratio 27 (6-26); Bilirubin,Total 0.3 mg/dL (0.3-1.0); Blood Urea Nitrogen 14 mg/dL (8-23); Calcium 9.3 mg/dL (8.6-10.3); Carbon Dioxide 27 mEq/L (23-29); Chloride 100 mEq/L (98-107); Globulin 2.2 g/dL (2.4-3.5); Glucose 99 mg/dL (70-105); Osmolality,Calculated 277 (280-300); Potassium 3.7 mEq/L (3.5-5.1); Sodium 133 mEq/L (136-145); Total Protein 6.3 g/dL (6.4-8.9); eGFR For African Americans > 60 (> 60); eGFR For Non-African Americans > 60 (> 60)
[2020-09-13] MEDS: *HR* Enoxaparin 40 MG/0.4 ML SYRINGE SQ SCH (05:15)
[2020-09-13] MEDS: Azithromycin 250 MG TABLET PO SCH (10:00)
[2020-09-13] MEDS: traZODone 50 MG TABLET PO SCH (10:00)
[2020-09-13] MEDS: predniSONE 20 MG TABLET PO SCH (10:00)
[2020-09-13] MEDS: diazePAM 5 MG TABLET PO SCH (10:00)
[2020-09-13] MEDS: Nicotine 14 MG PATCH.TD24 TD SCH (10:00)
[2020-09-13] MEDS: Mirtazapine 15 MG TABLET PO SCH (20:47)
[2020-09-14] MEDS: Ipratropium/Albuterol Neb 3 ML IH SCH ×4 (03:45→14:44)
[2020-09-14] MEDS: *HR* Enoxaparin 40 MG/0.4 ML SYRINGE SQ SCH (04:58)
[2020-09-14] MEDS: Nicotine 14 MG PATCH.TD24 TD SCH (07:32)
[2020-09-14] MEDS: traZODone 50 MG TABLET PO SCH (07:33)
[2020-09-14] MEDS: Azithromycin 250 MG TABLET PO SCH (07:33)
[2020-09-14] MEDS: diazePAM 5 MG TABLET PO SCH (07:33)
[2020-09-14] MEDS: predniSONE 20 MG TABLET PO SCH (07:33)
[2020-09-14 10:59] VITALS: BP 111/67
== END 2020-09-14 16:32 | disposition home health service (06) ==
LOC: EMEROOARM 08:49 → 3BNU 08:49 → SUATTDRO 14:50 → 3BNU 15:22
PROVIDERS: ADMIT Internal Medicine; ATTEND Registered Nurse